=== PATIENT | male | born 1950 | race Caucasian/White ===

== ENCOUNTER 2020-04-08 16:09 | Emergency (ER) | payer MEDICARE ==
[2020-04-08] MEDS ORDERED: hydrOXYzine 25 MG TAB ONE (16:29)
[2020-04-08] MEDS ORDERED: Cephalexin 500 MG CAP ONE (16:29)
== END 2020-04-08 16:39 | disposition home or self-care (01) ==
LOC: MADERS 16:09
DX: L73.9 Follicular disorder, unspecified (principal); E78.5 Hyperlipidemia, unspecified; I10 Essential (primary) hypertension; E11.9 Type 2 diabetes mellitus without complications; Z79.84 Long term (current) use of oral hypoglycemic drugs; Z79.899 Other long term (current) drug therapy
CPT/HCPCS: 99282